=== PATIENT | male | born 1965 | race Caucasian/White ===

== ENCOUNTER 2018-10-28 09:18 | Outpatient (RCR) | payer OTHER ==
[~2018-10-28 09:18] MED LIST: BLOOD PRESSURE MED; MULTIPLE VITAMI1 CAP; ZOCOR 10MG10 MG PO
== END 2018-11-05 13:42 | disposition home or self-care (01) ==
LOC: WSOH 09:18
DX: M76.52 Patellar tendinitis, left knee (principal); M25.562 Pain in left knee; W18.43XA Slipping, tripping and stumbling without falling due to stepping from one level to another, initial encounter; Y92.414 Local residential or business street as the place of occurrence of the external cause; Y93.89 Activity, other specified; Y99.0 Civilian activity done for income or pay; I10 Essential (primary) hypertension; E78.00 Pure hypercholesterolemia, unspecified

== ENCOUNTER 2019-10-12 02:35 | Emergency (ER) | payer OTHER ==
[~2019-10-12] VITALS: Ht 193 cm; Wt 111.4 kg
[2019-10-12 02:36] VITALS: TEMP 97.8
[2019-10-12] MEDS ORDERED: HYDRODIURIL50 MG PO (02:45)
[2019-10-12] MEDS ORDERED: VITAMINC500CH (02:46)
[2019-10-12] MEDS ORDERED: MAGNESIUM ELEM300 MG PO (02:46)
[2019-10-12] MEDS ORDERED: KLOR-CON 88 ME1 PO (02:46)
[2019-10-12 03:13] LABS: BASO # 0.1 (0.0-0.2); BASO % 0.8 % (0.0-2.0); EOS # 0.2 (0.0-0.7); EOS % 2.1 % (0-4.0); GRAN # 4.1 (1.4-6.5); GRAN % 45.7 % (42.2-75.2); HEMATOCRIT 49.5 % (42.0-52.0); HEMOGLOBIN 17.3 g/dl (13.5-18.0); LYMPH # 3.9 (1.2-3.4); LYMPH % 42.9 % (20.0-51.0); MEAN CELL VOLUME 85 fl (80.0-100.0); MEAN CORPUSCULAR HEMOGLOBIN 30 pg (27.0-31.0); MEAN CORPUSCULAR HGB CONC 35 g/dl (33.0-37.0); MEAN PLATELET VOLUME 10.7 fl (7.4-10.4); MONO # 0.8 (0.1-0.6); MONO % 8.3 % (1.7-9.3); PLATELET COUNT 233 K/mm3 (130-400); RED BLOOD COUNT 5.86 M/mm3 (4.20-5.60); REDCELL DISTRIBUTION WIDTH-CV 13.5 % (11.5-14.5)
[2019-10-12 03:43] LABS: ALANINE AMINOTRANSFERASE 19 U/L (4-49); ALBUMIN 4.5 gm/dL (3.5-5.0); ALKALINE PHOSPHATASE 78 U/L (50-136); ANION GAP 12 mmol/L (7-16); AST,SGOT 27 U/L (15-37); BILIRUBIN,TOTAL 0.9 mg/dL (0.0-1.0); BLOOD UREA NITROGEN 21 mg/dL (9-20); CALCIUM 9.5 mg/dL (8.4-10.2); CARBON DIOXIDE 28 mmol/L (22-30); CHLORIDE 98 mmol/L (98-107); CREATININE, serum 1.09 (0.66-1.25); GLUCOSE 145 mg/dL (74-106); SODIUM 138 mmol/L (137-145); TOTAL PROTEIN 7.9 gm/dL (6.4-8.2)
[2019-10-12 03:50] LABS: POTASSIUM 2.9 mmol/L (3.4-5.0)
[2019-10-12 03:56] LABS: TROPONIN-I < 0.012 ng/mL (0.000-0.035)
[2019-10-12 03:59] LABS: PROLACTIN 53.8 ng/mL (3.7-17.9)
[2019-10-12] MEDS ORDERED: KEPPRA 500MG500 MG PO (06:28)
[2019-10-12] MEDS ORDERED: CEPHALEXIN500 M1 PO (06:28)
[2019-10-12 07:01] VITALS: BP 119/65; PULSE 76
== END 2019-10-12 07:08 | disposition home or self-care (01) ==
LOC: COL.ER 02:35
PROVIDERS: Emergency Medicine
DX: S02.2XXA Fracture of nasal bones, initial encounter for closed fracture (principal); S01.21XA Laceration without foreign body of nose, initial encounter; R55 Syncope and collapse; E87.6 Hypokalemia; E78.5 Hyperlipidemia, unspecified; I10 Essential (primary) hypertension; W01.198A Fall on same level from slipping, tripping and stumbling with subsequent striking against other object, initial encounter; Y92.002 Bathroom of unspecified non-institutional (private) residence as the place of occurrence of the external cause
CPT/HCPCS: J1953; J3010; J3480; J7030

== ENCOUNTER → 2019-10-20 | Outpatient (CLI) | payer OTHER ==
[~2019-10-20] MED LIST changes: +CEPHALEXIN500 M1 PO; +HYDRODIURIL50 MG PO; +KEPPRA 500MG500 MG PO; +KLOR-CON 88 ME1 PO; +MAGNESIUM ELEM300 MG PO; +VITAMINC500CH
[2019-10-20 14:44] VITALS: BP 120/65; PULSE 61; TEMP 98
== END ==
LOC: COL.ER 14:34
DX: Z48.02 Encounter for removal of sutures (principal)